=== PATIENT | female | born 1965 | race Caucasian/White ===

== ENCOUNTER 2017-05-18 06:57 | Day surgery (SDC) | payer OTHER ==
[2017-05-18] MEDS ORDERED: LIDOCAINE 2% (SDV) 5 ML INJ (08:12)
[2017-05-18] MEDS ORDERED: PROPOFOL 40 ML (08:12)
== END 2017-05-18 12:29 | disposition home or self-care (01) ==
LOC: GIL 06:57
DX: Z12.11 Encounter for screening for malignant neoplasm of colon (principal); K64.8 Other hemorrhoids; R73.03 Prediabetes; E78.5 Hyperlipidemia, unspecified; E66.9 Obesity, unspecified; Z68.41 Body mass index [BMI] 40.0-44.9, adult
CPT/HCPCS: 45378; 82962